=== PATIENT | female | born 1975 | race Caucasian/White ===

== ENCOUNTER 2017-07-30 20:10 | Inpatient (IN) | payer MEDICAID ==
[~2017-07-30] VITALS: Ht 149.9 cm; Wt 76.2 kg
[~2017-07-30 20:10] MED LIST: DIPH1TAB PO; DOXY100C77 PO; HYDR-569 PO; IBUP-1984 PO; IBUP-1986 PO; MECL12.5 PO; NO HOME MEDS; TRAM50TA2 PO
[2017-07-30] MEDS ORDERED: albuterol 2.5 MG/3 ML nebule CONTNEB PRN (20:25)
[2017-07-30] MEDS ORDERED: methylPREDNISolone sod succ 125mg/2ml vial IV ONE (20:25)
[2017-07-30] MEDS ORDERED: LORazepam 2 mg/ml vial IV ONE ×3 (20:40→21:35)
[2017-07-30 20:45] LABS: ABG HCO3 17.8 mmol/L (22.0-26.0); ABG OXYGEN SATURATION 98.1 % (95-98); ABG PCO2 (T) 18.5 mmHg (32.0-45.0); ABG PH (T) 7.601 (7.350-7.450); ABG PO2 (T) 101.7 mmHg (83-108); ALLEN'S TEST Positive; FCOHb 1.3 % (0.5-1.5); FMetHb 0.1 % (0.3-1.12); FO2Hb 96.7 % (94-100); PATIENT TEMPERATURE 37.1; TOTAL HEMOGLOBIN 14.5 G/dl (12.0-16.0)
[2017-07-30] MEDS ORDERED: ipratropium/albuterol 3ml nebule ONE (20:48)
[2017-07-30 21:02] LABS: PARTIAL THROMBOPLASTIN TIME 28 SECONDS (22-32); PROTHROMBIN TIME 10.2 SECONDS (9.0-12.0)
[2017-07-30 21:04] LABS: BASOPHILS # (AUTO) 0.1 X10'3 (0-0.2); BASOPHILS % (AUTO) 0.9 % (0-1); EOSINOPHILS # (AUTO) 0.2 X10'3 (0-0.9); EOSINOPHILS % (AUTO) 1.3 % (0-6); HEMATOCRIT 41.3 % (35.0-45.0); HEMOGLOBIN 14.3 g/dl (12.0-16.0); LYMPHOCYTES # (AUTO) 2.5 X10'3 (1.1-4.8); MEAN CORPUSCULAR HEMOGLOBIN 30.6 PG (27.0-31.0); MEAN CORPUSCULAR HGB CONC 34.5 % (33.0-36.5); MEAN CORPUSCULAR VOLUME 88.5 FL (78-98); MEAN PLATELET VOLUME 8.8 FL (7.4-10.4); MONOCYTES % (AUTO) 8.3 % (2-12); NEUTROPHILS # (AUTO) 7.8 X10'3 (1.8-7.7); NEUTROPHILS % (AUTO) 67.5 % (42-75); PLATELET COUNT 221 X10'3 (140-440); RED BLOOD COUNT 4.66 X10'6 (4.20-5.60); RED CELL DISTRIBUTION WIDTH 14.1 % (11.5-14.5); WHITE BLOOD COUNT 11.5 X10'3 (4.5-11.0)
[2017-07-30 21:19] LABS: ALANINE AMINOTRANSFERASE 17 U/L (12-78); ALBUMIN 3.7 G/DL (3.4-5.0); ALBUMIN/GLOBULIN RATIO 0.9 (1.1-1.5); ALKALINE PHOSPHATASE 137 IU/L (46-116); ANION GAP 15 (8-16); ASPARTATE AMINO TRANSFERASE 18 U/L (10-37); BILIRUBIN,TOTAL 0.5 MG/DL (0.1-1.0); BLOOD UREA NITROGEN 13 MG/DL (7-18); BUN/CREATININE RATIO 17.3 (6.6-38.0); CALCIUM 8.8 MG/DL (8.5-10.1); CHLORIDE 104 MMOL/L (99-107); CREATININE 0.75 MG/DL (0.40-0.90); GLUCOSE 89 MG/DL (70-104); SODIUM 140 MMOL/L (135-145); TOTAL CARBON DIOXIDE 20.8 MMOL/L (24-32); TOTAL PROTEIN 7.9 G/DL (6.4-8.2); eGFR 84 ML/MIN
[2017-07-30 21:23] LABS: POTASSIUM 2.4 MMOL/L (3.5-5.1)
[2017-07-30] MEDS ORDERED: iohexol 350MG/ML 100ml bottle IV ONE (21:28)
[2017-07-30] MEDS ORDERED: Potassium Cl inj 20 MEQ in dextrose 5%-water 990 ML IV ONE (21:35)
[2017-07-30] MEDS ORDERED: potassium Cl 20 mEq SR tablet PO STA (21:35)
[2017-07-30 21:53] LABS: D-DIMER 0.52 MG/L FEU (0-0.50)
[2017-07-30] MEDS ORDERED: acetaminophen/codeine 120mg/12mg per 5ml cup PO ONE (22:20)
[2017-07-30 23:11] LABS: URINE AMPHETAMINE SCREEN POSITIVE (Neg); URINE BARBITUATE SCREEN NEGATIVE (Neg); URINE BENZODIAZEPINES SCREEN NEGATIVE (Neg); URINE CANNABINOID SCREEN NEGATIVE (Neg); URINE COCAINE SCREEN NEGATIVE (Neg); URINE METHADONE SCREEN NEGATIVE (Neg); URINE OPIATE SCREEN NEGATIVE (Neg); URINE PHENCYCLIDINE SCREEN NEGATIVE (Neg)
[2017-07-31] MEDS ORDERED: potassium Cl 40MEQ/NS 500ml 500 ML IV PRN ×2 (00:30)
[2017-07-31] MEDS ORDERED: acetaminophen 325mg tablet PO PRN (00:30)
[2017-07-31] MEDS ORDERED: ondansetron/PF 4mg/2ml inj IV PRN (00:30)
[2017-07-31] MEDS ORDERED: potassium Cl 20 mEq SR tablet PO PRN ×2 (00:30)
[2017-07-31] MEDS ORDERED: albuterol 2.5 MG/3 ML nebule NEB PRN (00:35)
[2017-07-31] MEDS ORDERED: LORazepam 2 mg/ml vial IV PRN (00:35)
[2017-07-31 01:45] VITALS: BP 108/64
[2017-07-31] MEDS ORDERED: potassium Cl 40MEQ/NS 500ml 500 ML IV ONE (01:56)
[2017-07-31] MEDS: normal saline 1000ml 1,000 ML IV SCH ×2 (05:29→10:29)
[2017-07-31 07:17] VITALS: BP 100/57
[2017-07-31] MEDS ORDERED: heparin, porcine 5000 units/ml vial SQ SCH (08:00)
[2017-07-31] MEDS ORDERED: K and/or MAG REPLACEMENT MC SCH (08:00)
[2017-07-31 08:48] LABS: BASOPHILS % (AUTO) 0.1 % (0-1); EOSINOPHILS # (AUTO) 0.1 X10'3 (0-0.9); HEMATOCRIT 38.9 % (35.0-45.0); HEMOGLOBIN 13.3 g/dl (12.0-16.0); LYMPHOCYTES # (AUTO) 0.6 X10'3 (1.1-4.8); LYMPHOCYTES % (AUTO) 7.3 % (21-51); MEAN CORPUSCULAR HEMOGLOBIN 30.5 PG (27.0-31.0); MEAN CORPUSCULAR HGB CONC 34.2 % (33.0-36.5); MEAN CORPUSCULAR VOLUME 89.1 FL (78-98); MEAN PLATELET VOLUME 8.4 FL (7.4-10.4); MONOCYTES # (AUTO) 0.2 X10'3 (0-0.9); NEUTROPHILS # (AUTO) 7.7 X10'3 (1.8-7.7); NEUTROPHILS % (AUTO) 89.6 % (42-75); PLATELET COUNT 196 X10'3 (140-440); RED BLOOD COUNT 4.36 X10'6 (4.20-5.60); RED CELL DISTRIBUTION WIDTH 14.4 % (11.5-14.5); WHITE BLOOD COUNT 8.6 X10'3 (4.5-11.0)
[2017-07-31 09:01] LABS: ALBUMIN 2.9 G/DL (3.4-5.0); ANION GAP 11 (8-16); BLOOD UREA NITROGEN 7 MG/DL (7-18); BUN/CREATININE RATIO 12.1 (6.6-38.0); CALCIUM 8.5 MG/DL (8.5-10.1); CHLORIDE 108 MMOL/L (99-107); CREATININE 0.58 MG/DL (0.40-0.90); GLUCOSE 181 MG/DL (70-104); POTASSIUM 4.2 MMOL/L (3.5-5.1); SODIUM 139 MMOL/L (135-145); TOTAL CARBON DIOXIDE 19.8 MMOL/L (24-32); eGFR > 90 ML/MIN
[2017-07-31 09:06] LABS: ABG HCO3 19.5 mmol/L (22.0-26.0); ABG OXYGEN SATURATION 94.2 % (95-98); ABG PCO2 (T) 31.2 mmHg (32.0-45.0); ABG PH (T) 7.413 (7.350-7.450); ABG PO2 (T) 72.4 mmHg (83-108); ALLEN'S TEST Positive; FCOHb 0.1 % (0.5-1.5); FMetHb 0.2 % (0.3-1.12); FO2Hb 93.9 % (94-100)
[2017-07-31] MEDS ORDERED: iohexol 350MG/ML 100ml bottle IV ONE (09:54)
[2017-07-31] MEDS ORDERED: NO HOME MEDS (09:55)
[2017-07-31 11:30] VITALS: BP 106/65
== END 2017-07-31 13:07 | disposition home or self-care (01) | DRG 425 ==
LOC: ER 20:11 → ED HOLD 07-31 00:29 → SUR 3N 07-31 01:20
PROVIDERS: ADMIT Internal Medicine; ATTEND Internal Medicine
PROC: BW2F1ZZ Computerized Tomography (CT Scan) of Neck using Low Osmolar Contrast (ICD-10-PCS; principal; 2017-07-30)
PROC: B3201ZZ Computerized Tomography (CT Scan) of Thoracic Aorta using Low Osmolar Contrast (ICD-10-PCS; 2017-07-31)
DX: E87.3 Alkalosis (principal); F15.10 Other stimulant abuse, uncomplicated; E87.6 Hypokalemia; R22.1 Localized swelling, mass and lump, neck; F17.210 Nicotine dependence, cigarettes, uncomplicated; F41.9 Anxiety disorder, unspecified; R06.4 Hyperventilation; Z71.51 Drug abuse counseling and surveillance of drug abuser
CPT/HCPCS: 36415; 36600; 70491; 71045; 71275; 80048; 80053; 80305; 82803; 82948; 83605; 83880; 84484; 85018; 85025; 85379; 85610; 85730; 87040; 87070; 94640; 94760; J1644; J2060; J2930; J3480; J7030; J7070; Q9967

== ENCOUNTER 2017-09-06 23:04 | Emergency (ER) | payer MEDICAID ==
[~2017-09-06] VITALS: Ht 149.9 cm; Wt 77.6 kg
[2017-09-06 23:06] VITALS: BP 113/77
== END 2017-09-06 23:57 | disposition home or self-care (01) ==
LOC: ER 23:04
DX: S61.012D Laceration without foreign body of left thumb without damage to nail, subsequent encounter (principal); F15.90 Other stimulant use, unspecified, uncomplicated; Z90.49 Acquired absence of other specified parts of digestive tract; Z98.890 Other specified postprocedural states; Z56.0 Unemployment, unspecified; X58.XXXD Exposure to other specified factors, subsequent encounter
CPT/HCPCS: 99282

== ENCOUNTER 2017-09-10 04:32 | Emergency (ER) | payer MEDICAID ==
[~2017-09-10] VITALS: Ht 165.1 cm; Wt 74.5 kg
[2017-09-10] MEDS ORDERED: ondansetron/PF 4mg/2ml inj IM ONE (05:30)
[2017-09-10] MEDS ORDERED: morphine 4 MG/ML inj SYRINge IM ONE (05:30)
[2017-09-10 05:52] VITALS: BP 130/86
[2017-09-10] MEDS ORDERED: IBUP-1984 PO (05:59)
[2017-09-10] MEDS ORDERED: HYDR-569 PO (05:59)
== END 2017-09-10 06:25 | disposition home or self-care (01) ==
LOC: ER 04:33
DX: S00.83XA Contusion of other part of head, initial encounter (principal); F15.90 Other stimulant use, unspecified, uncomplicated; Z90.49 Acquired absence of other specified parts of digestive tract; Z79.899 Other long term (current) drug therapy; Z56.0 Unemployment, unspecified; Y04.8XXA Assault by other bodily force, initial encounter
CPT/HCPCS: 70450; 70486; 72125; 96372; 99284; J2270; J2405

== ENCOUNTER 2017-09-30 08:58 | Emergency (ER) | payer MEDICAID ==
[~2017-09-30] VITALS: Ht 149.9 cm; Wt 73.6 kg
[~2017-09-30 08:58] MED LIST changes: -DIPH1TAB PO; -DOXY100C77 PO; -IBUP-1986 PO; -MECL12.5 PO; -NO HOME MEDS; -TRAM50TA2 PO
[2017-09-30 09:54] LABS: BASOPHILS % (AUTO) 0.3 % (0-1); EOSINOPHILS % (AUTO) 0.2 % (0-6); HEMATOCRIT 43.3 % (35.0-45.0); HEMOGLOBIN 14.8 g/dl (12.0-16.0); LYMPHOCYTES # (AUTO) 1.2 X10'3 (1.1-4.8); LYMPHOCYTES % (AUTO) 9.8 % (21-51); MEAN CORPUSCULAR HEMOGLOBIN 30.4 PG (27.0-31.0); MEAN CORPUSCULAR HGB CONC 34.2 % (33.0-36.5); MEAN CORPUSCULAR VOLUME 88.9 FL (78-98); MEAN PLATELET VOLUME 8.6 FL (7.4-10.4); MONOCYTES # (AUTO) 0.7 X10'3 (0-0.9); MONOCYTES % (AUTO) 5.4 % (2-12); NEUTROPHILS # (AUTO) 10.7 X10'3 (1.8-7.7); NEUTROPHILS % (AUTO) 84.3 % (42-75); PLATELET COUNT 181 X10'3 (140-440); RED BLOOD COUNT 4.87 X10'6 (4.20-5.60); RED CELL DISTRIBUTION WIDTH 15.5 % (11.5-14.5); WHITE BLOOD COUNT 12.7 X10'3 (4.5-11.0)
[2017-09-30 10:09] LABS: ALANINE AMINOTRANSFERASE 25 U/L (12-78); ALBUMIN 3.4 G/DL (3.4-5.0); ALBUMIN/GLOBULIN RATIO 0.7 (1.1-1.5); ALKALINE PHOSPHATASE 116 IU/L (46-116); ANION GAP 11 (8-16); ASPARTATE AMINO TRANSFERASE 24 U/L (10-37); BILIRUBIN,TOTAL 0.4 MG/DL (0.1-1.0); BLOOD UREA NITROGEN 7 MG/DL (7-18); BUN/CREATININE RATIO 9.7 (6.6-38.0); CALCIUM 8.9 MG/DL (8.5-10.1); CHLORIDE 98 MMOL/L (99-107); CREATININE 0.72 MG/DL (0.40-0.90); GLUCOSE 100 MG/DL (70-104); SODIUM 134 MMOL/L (135-145); TOTAL CARBON DIOXIDE 25.5 MMOL/L (24-32); TOTAL PROTEIN 8.4 G/DL (6.4-8.2); eGFR 88 ML/MIN
[2017-09-30] MEDS ORDERED: potassium Cl 20 mEq SR tablet PO STA (11:27)
[2017-09-30] MEDS ORDERED: PENI-88 PO (12:24)
[2017-09-30 12:54] VITALS: BP 97/56
== END 2017-09-30 13:11 | disposition home or self-care (01) ==
LOC: ER 08:58
DX: J02.0 Streptococcal pharyngitis (principal); R22.1 Localized swelling, mass and lump, neck; F17.200 Nicotine dependence, unspecified, uncomplicated; F15.90 Other stimulant use, unspecified, uncomplicated; Z90.49 Acquired absence of other specified parts of digestive tract; Z56.0 Unemployment, unspecified; Z98.890 Other specified postprocedural states; Z79.2 Long term (current) use of antibiotics; Z79.1 Long term (current) use of non-steroidal anti-inflammatories (NSAID)
CPT/HCPCS: 36415; 70490; 80053; 85025; 87880; 99285

== ENCOUNTER 2017-10-25 10:12 | Inpatient (IN) | payer MEDICAID ==
[~2017-10-25] VITALS: Ht 149.9 cm; Wt 73.3 kg
[~2017-10-25 10:12] MED LIST changes: -IBUP-1984 PO
[2017-10-25 10:41] LABS: BASOPHILS # (AUTO) 0.1 X10'3 (0-0.2); BASOPHILS % (AUTO) 0.5 % (0-1); EOSINOPHILS % (AUTO) 0.2 % (0-6); HEMATOCRIT 44.4 % (35.0-45.0); HEMOGLOBIN 15.3 g/dl (12.0-16.0); LYMPHOCYTES # (AUTO) 1.2 X10'3 (1.1-4.8); LYMPHOCYTES % (AUTO) 8.5 % (21-51); MEAN CORPUSCULAR HEMOGLOBIN 30.9 PG (27.0-31.0); MEAN CORPUSCULAR HGB CONC 34.4 % (33.0-36.5); MEAN PLATELET VOLUME 8.5 FL (7.4-10.4); MONOCYTES # (AUTO) 0.7 X10'3 (0-0.9); NEUTROPHILS # (AUTO) 12.4 X10'3 (1.8-7.7); NEUTROPHILS % (AUTO) 85.8 % (42-75); PLATELET COUNT 206 X10'3 (140-440); RED BLOOD COUNT 4.93 X10'6 (4.20-5.60); RED CELL DISTRIBUTION WIDTH 15.8 % (11.5-14.5); WHITE BLOOD COUNT 14.4 X10'3 (4.5-11.0)
[2017-10-25 10:45] LABS: CLARITY,URINE CLOUDY (Clear); COLOR,URINE YELLOW (Yellow); GLUCOSE, URINE NEGATIVE (Neg); KETONES,URINE NEGATIVE (Neg); LEUKOCYTE ESTERASE ,URINE LARGE (Neg); NITRITES, URINE POSITIVE (Neg); OCCULT BLOOD,URINE MODERATE (Neg); PH,URINE 6.5 (4.8-8.0); PROTEIN,URINE 30 mg/dl (Neg); URINE HCG NEGATIVE (NEG); UROBILINOGEN,URINE 0.2 E.U/dL (0.2-1.0)
[2017-10-25 10:46] LABS: UA COLLECTION TYPE CLN CATCH MIDSTREAM
[2017-10-25 10:50] LABS: INR 1.1 INR; PROTHROMBIN TIME 10.9 SECONDS (9.0-12.0)
[2017-10-25 10:52] LABS: BACTERIA,URINE 4+ /HPF (Neg); WBC,URINE TNTC /HPF (0-4)
[2017-10-25 10:53] LABS: MUCUS STRANDS FEW /LPF (Neg); SQUAMOUS EPITHELIAL CELL,UR MANY /LPF (FEW)
[2017-10-25 10:55] LABS: ALANINE AMINOTRANSFERASE 14 U/L (12-78); ALBUMIN 3.5 G/DL (3.4-5.0); ALBUMIN/GLOBULIN RATIO 0.8 (1.1-1.5); ALKALINE PHOSPHATASE 123 IU/L (46-116); ANION GAP 8 (8-16); ASPARTATE AMINO TRANSFERASE 15 U/L (10-37); BILIRUBIN,TOTAL 0.9 MG/DL (0.1-1.0); CALCIUM 8.9 MG/DL (8.5-10.1); CHLORIDE 100 MMOL/L (99-107); CREATININE 0.64 MG/DL (0.40-0.90); GLUCOSE 92 MG/DL (70-104); POTASSIUM 3.2 MMOL/L (3.5-5.1); SODIUM 135 MMOL/L (135-145); TOTAL CARBON DIOXIDE 27.2 MMOL/L (24-32); TOTAL PROTEIN 8.1 G/DL (6.4-8.2); eGFR > 90 ML/MIN
[2017-10-25 11:04] LABS: BLOOD UREA NITROGEN 4 MG/DL (7-18); BUN/CREATININE RATIO 6.3 (6.6-38.0)
[2017-10-25] MEDS ORDERED: normal saline 1000ML IV soln IVB ONE (11:45)
[2017-10-25] MEDS ORDERED: ondansetron/PF 4mg/2ml inj IV ONE (11:45)
[2017-10-25] MEDS ORDERED: HYDROmorphone 1 mg/ml syringe IV ONE (11:45)
[2017-10-25 11:58] LABS: MAGNESIUM 1.9 MG/DL (1.5-2.4)
[2017-10-25 11:59] LABS: PARTIAL THROMBOPLASTIN TIME 30 SECONDS (22-32)
[2017-10-25 12:49] LABS: CLARITY,URINE SLIGHTLY CLOUDY (Clear); COLOR,URINE YELLOW (Yellow); GLUCOSE, URINE NEGATIVE (Neg); KETONES,URINE NEGATIVE (Neg); LEUKOCYTE ESTERASE ,URINE LARGE (Neg); NITRITES, URINE POSITIVE (Neg); OCCULT BLOOD,URINE SMALL (Neg); PROTEIN,URINE 30 mg/dl (Neg); UROBILINOGEN,URINE 0.2 E.U/dL (0.2-1.0)
[2017-10-25 12:54] LABS: UA COLLECTION TYPE CLN CATCH MIDSTREAM
[2017-10-25 12:56] LABS: BACTERIA,URINE 2+ /HPF (Neg); MUCUS STRANDS NONE SEEN /LPF (Neg); RBC,URINE 0-2 /HPF (0-2); SQUAMOUS EPITHELIAL CELL,UR NONE SEEN /LPF (FEW); WBC,URINE 30-50 /HPF (0-4)
[2017-10-25] MEDS ORDERED: CefTRIAXone 2gm/D5W 50ml 50 ML IV ONE (13:45)
[2017-10-25] MEDS ORDERED: LEVO500T89 PO (16:46)
[2017-10-25] MEDS ORDERED: ketorolac trometh. 30mg/ml inj. IV ONE (17:20)
[2017-10-25] MEDS ORDERED: HYDROcodone/acetaminophen 10/325mg tab PO PRN (17:35)
[2017-10-25] MEDS ORDERED: magnesium hydroxide 30ml (MOM) UD suspension PO PRN (17:35)
[2017-10-25] MEDS ORDERED: potassium Cl 40MEQ/NS 500ml 500 ML IV PRN ×2 (17:35)
[2017-10-25] MEDS ORDERED: potassium Cl 20 mEq SR tablet PO PRN (17:35)
[2017-10-25] MEDS ORDERED: ondansetron/PF 4mg/2ml inj IV PRN (17:35)
[2017-10-25] MEDS ORDERED: mag hydrox/Alum hydrox/simeth 30ml oral suspension PO PRN (17:35)
[2017-10-25] MEDS ORDERED: magnesium 1gm/100ml D5W IVPB 100 ML IV PRN (17:35)
[2017-10-25] MEDS ORDERED: magnesium Cl slow-release 64mg tablet PO PRN (17:35)
[2017-10-25] MEDS ORDERED: acetaminophen 325mg tablet PO PRN (17:35)
[2017-10-25] MEDS ORDERED: magnesium 4gm in 100ml NS 100 ML IV PRN (17:35)
[2017-10-25] MEDS ORDERED: HYDROcodone/acetaminophen 5mg/325mg tablet PO PRN (17:35)
[2017-10-25] MEDS: normal saline 1000ml 1,000 ML IV SCH ×2 (17:59→19:38)
[2017-10-25] MEDS ORDERED: NO HOME MEDS (18:00)
[2017-10-25] MEDS: nicotine 14mg patch - 24hr TD SCH (18:20)
[2017-10-25] MEDS: potassium Cl 20 mEq SR tablet PO PRN ×2 (19:39→23:58)
[2017-10-25 20:00] VITALS: BP 90/45
[2017-10-25] MEDS ORDERED: temazepam 15mg capsule PO PRN (21:00)
[2017-10-26] VITALS: BP 94/44
[2017-10-26] MEDS: normal saline 1000ml 1,000 ML IV SCH ×3 (04:17→23:20)
[2017-10-26] MEDS: potassium Cl 20 mEq SR tablet PO PRN ×4 (04:17→23:18)
[2017-10-26 06:06] LABS: ALANINE AMINOTRANSFERASE 10 U/L (12-78); ALBUMIN 2.4 G/DL (3.4-5.0); ALBUMIN/GLOBULIN RATIO 0.7 (1.1-1.5); ALKALINE PHOSPHATASE 91 IU/L (46-116); ANION GAP 9 (8-16); ASPARTATE AMINO TRANSFERASE 11 U/L (10-37); BILIRUBIN,TOTAL 0.3 MG/DL (0.1-1.0); BLOOD UREA NITROGEN 7 MG/DL (7-18); BUN/CREATININE RATIO 10.6 (6.6-38.0); CALCIUM 7.6 MG/DL (8.5-10.1); CHLORIDE 106 MMOL/L (99-107); CREATININE 0.66 MG/DL (0.40-0.90); GLUCOSE 97 MG/DL (70-104); MAGNESIUM 1.8 MG/DL (1.5-2.4); POTASSIUM 3.4 MMOL/L (3.5-5.1); SODIUM 135 MMOL/L (135-145); TOTAL CARBON DIOXIDE 20.5 MMOL/L (24-32); TOTAL PROTEIN 5.9 G/DL (6.4-8.2); eGFR > 90 ML/MIN
[2017-10-26 06:09] LABS: BASOPHILS % (AUTO) 0.2 % (0-1); EOSINOPHILS # (AUTO) 0.2 X10'3 (0-0.9); EOSINOPHILS % (AUTO) 1.1 % (0-6); HEMATOCRIT 35.2 % (35.0-45.0); HEMOGLOBIN 12.3 g/dl (12.0-16.0); LYMPHOCYTES # (AUTO) 1.4 X10'3 (1.1-4.8); LYMPHOCYTES % (AUTO) 9.1 % (21-51); MEAN CORPUSCULAR HEMOGLOBIN 31.2 PG (27.0-31.0); MEAN CORPUSCULAR HGB CONC 34.9 % (33.0-36.5); MEAN CORPUSCULAR VOLUME 89.3 FL (78-98); MEAN PLATELET VOLUME 9.8 FL (7.4-10.4); MONOCYTES # (AUTO) 0.8 X10'3 (0-0.9); MONOCYTES % (AUTO) 5.1 % (2-12); NEUTROPHILS # (AUTO) 13.3 X10'3 (1.8-7.7); NEUTROPHILS % (AUTO) 84.5 % (42-75); PLATELET COUNT 150 X10'3 (140-440); RED BLOOD COUNT 3.94 X10'6 (4.20-5.60); RED CELL DISTRIBUTION WIDTH 15.6 % (11.5-14.5); WHITE BLOOD COUNT 15.7 X10'3 (4.5-11.0)
[2017-10-26 07:00] VITALS: BP 102/55
[2017-10-26] MEDS: CefTRIAXone/D5W-Rocephin 1gm 50 ML IV SCH (07:20)
[2017-10-26] MEDS: acetaminophen 325mg tablet PO PRN ×2 (07:21→16:34)
[2017-10-26] MEDS: nicotine 14mg patch - 24hr TD SCH (07:26)
[2017-10-26] MEDS: K and/or MAG REPLACEMENT MC SCH (07:26)
[2017-10-26 19:00] VITALS: BP 92/46
[2017-10-26] MEDS: lactobacillus rhamnosus 10,000 MMU CELLS/CAPSULE PO SCH (23:18)
[2017-10-27] VITALS: BP 108/82
[2017-10-27 04:41] LABS: BASOPHILS % (AUTO) 0.4 % (0-1); EOSINOPHILS # (AUTO) 0.2 X10'3 (0-0.9); EOSINOPHILS % (AUTO) 1.7 % (0-6); HEMATOCRIT 34.8 % (35.0-45.0); HEMOGLOBIN 11.9 g/dl (12.0-16.0); LYMPHOCYTES # (AUTO) 1.5 X10'3 (1.1-4.8); LYMPHOCYTES % (AUTO) 16.6 % (21-51); MEAN CORPUSCULAR HEMOGLOBIN 30.9 PG (27.0-31.0); MEAN CORPUSCULAR VOLUME 90.7 FL (78-98); MEAN PLATELET VOLUME 9.1 FL (7.4-10.4); MONOCYTES # (AUTO) 0.7 X10'3 (0-0.9); MONOCYTES % (AUTO) 7.5 % (2-12); NEUTROPHILS # (AUTO) 6.7 X10'3 (1.8-7.7); NEUTROPHILS % (AUTO) 73.8 % (42-75); PLATELET COUNT 131 X10'3 (140-440); RED BLOOD COUNT 3.84 X10'6 (4.20-5.60); RED CELL DISTRIBUTION WIDTH 15.5 % (11.5-14.5)
[2017-10-27 04:56] LABS: ALANINE AMINOTRANSFERASE 17 U/L (12-78); ALBUMIN 2.3 G/DL (3.4-5.0); ALBUMIN/GLOBULIN RATIO 0.6 (1.1-1.5); ALKALINE PHOSPHATASE 105 IU/L (46-116); ANION GAP 6 (8-16); ASPARTATE AMINO TRANSFERASE 17 U/L (10-37); BILIRUBIN,TOTAL 0.3 MG/DL (0.1-1.0); BLOOD UREA NITROGEN 3 MG/DL (7-18); BUN/CREATININE RATIO 4.5 (6.6-38.0); CALCIUM 7.9 MG/DL (8.5-10.1); CHLORIDE 106 MMOL/L (99-107); CREATININE 0.67 MG/DL (0.40-0.90); GLUCOSE 105 MG/DL (70-104); MAGNESIUM 1.6 MG/DL (1.5-2.4); POTASSIUM 3.7 MMOL/L (3.5-5.1); SODIUM 135 MMOL/L (135-145); TOTAL CARBON DIOXIDE 22.7 MMOL/L (24-32); TOTAL PROTEIN 6.2 G/DL (6.4-8.2); eGFR > 90 ML/MIN
[2017-10-27 07:38] VITALS: BP 105/60
[2017-10-27] MEDS: nicotine 14mg patch - 24hr TD SCH (07:44)
[2017-10-27] MEDS: K and/or MAG REPLACEMENT MC SCH (07:46)
[2017-10-27] MEDS: CefTRIAXone/D5W-Rocephin 1gm 50 ML IV SCH (07:47)
[2017-10-27] MEDS: lactobacillus rhamnosus 10,000 MMU CELLS/CAPSULE PO SCH ×2 (07:47→19:56)
[2017-10-27 12:02] VITALS: BP 94/55
[2017-10-27] MEDS: normal saline 1000ml 1,000 ML IV SCH (12:22)
[2017-10-27 19:30] VITALS: BP 100/53
[2017-10-28] VITALS: BP 107/62
[2017-10-28] MEDS: normal saline 1000ml 1,000 ML IV SCH (03:02)
[2017-10-28 05:06] LABS: BASOPHILS # (AUTO) 0.1 X10'3 (0-0.2); BASOPHILS % (AUTO) 2.1 % (0-1); EOSINOPHILS # (AUTO) 0.2 X10'3 (0-0.9); EOSINOPHILS % (AUTO) 3.5 % (0-6); HEMATOCRIT 35.1 % (35.0-45.0); LYMPHOCYTES # (AUTO) 1.5 X10'3 (1.1-4.8); LYMPHOCYTES % (AUTO) 24.9 % (21-51); MEAN CORPUSCULAR HEMOGLOBIN 30.9 PG (27.0-31.0); MEAN CORPUSCULAR HGB CONC 34.2 % (33.0-36.5); MEAN CORPUSCULAR VOLUME 90.1 FL (78-98); MEAN PLATELET VOLUME 9.8 FL (7.4-10.4); MONOCYTES # (AUTO) 0.7 X10'3 (0-0.9); MONOCYTES % (AUTO) 10.8 % (2-12); NEUTROPHILS # (AUTO) 3.6 X10'3 (1.8-7.7); NEUTROPHILS % (AUTO) 58.7 % (42-75); PLATELET COUNT 150 X10'3 (140-440); RED CELL DISTRIBUTION WIDTH 15.3 % (11.5-14.5); WHITE BLOOD COUNT 6.1 X10'3 (4.5-11.0)
[2017-10-28 05:38] LABS: ALANINE AMINOTRANSFERASE 27 U/L (12-78); ALBUMIN 2.3 G/DL (3.4-5.0); ALBUMIN/GLOBULIN RATIO 0.6 (1.1-1.5); ALKALINE PHOSPHATASE 100 IU/L (46-116); ANION GAP 8 (8-16); ASPARTATE AMINO TRANSFERASE 27 U/L (10-37); BILIRUBIN,TOTAL 0.3 MG/DL (0.1-1.0); BLOOD UREA NITROGEN 4 MG/DL (7-18); BUN/CREATININE RATIO 7.1 (6.6-38.0); CALCIUM 8.1 MG/DL (8.5-10.1); CHLORIDE 108 MMOL/L (99-107); CREATININE 0.56 MG/DL (0.40-0.90); GLUCOSE 96 MG/DL (70-104); MAGNESIUM 1.8 MG/DL (1.5-2.4); POTASSIUM 3.6 MMOL/L (3.5-5.1); SODIUM 137 MMOL/L (135-145); TOTAL CARBON DIOXIDE 21.3 MMOL/L (24-32); TOTAL PROTEIN 6.4 G/DL (6.4-8.2); eGFR > 90 ML/MIN
[2017-10-28] MEDS: nicotine 14mg patch - 24hr TD SCH (06:28)
[2017-10-28] MEDS: K and/or MAG REPLACEMENT MC SCH (06:28)
[2017-10-28] MEDS: lactobacillus rhamnosus 10,000 MMU CELLS/CAPSULE PO SCH (06:49)
[2017-10-28] MEDS: CefTRIAXone/D5W-Rocephin 1gm 50 ML IV SCH (06:49)
[2017-10-28 08:46] VITALS: BP 102/48
[2017-10-28 11:36] VITALS: BP 109/66
[2017-10-28] MEDS ORDERED: LEVO500T2 PO (13:07)
[2017-10-28] MEDS ORDERED: NICO-631 TD (13:07)
== END 2017-10-28 15:00 | disposition home or self-care (01) | DRG 720 ==
LOC: ER 10:13 → ED HOLD 17:35 → SUR 3N 19:50
PROVIDERS: ADMIT Family Medicine; ATTEND Family Medicine
DX: A41.9 Sepsis, unspecified organism (principal); N10 Acute pyelonephritis; E87.6 Hypokalemia; J44.9 Chronic obstructive pulmonary disease, unspecified; M54.9 Dorsalgia, unspecified; F17.210 Nicotine dependence, cigarettes, uncomplicated; R74.0 Nonspecific elevation of levels of transaminase and lactic acid dehydrogenase [LDH]; R74.8 Abnormal levels of other serum enzymes; Z59.0 Homelessness; Z82.49 Family history of ischemic heart disease and other diseases of the circulatory system; Z90.49 Acquired absence of other specified parts of digestive tract; Z98.51 Tubal ligation status
CPT/HCPCS: 36415; 71045; 74176; 80053; 81001; 81025; 83605; 83735; 84145; 85025; 85610; 85730; 87040; 87070; 87077; 87088; 87186; 93005; 96361; 96365; 96375; 99285; A4353; J0696; J1170; J1885; J2405; J7030

== ENCOUNTER 2018-09-23 12:02 | Emergency (ER) | payer MEDICAID ==
[~2018-09-23] VITALS: Ht 149.9 cm; Wt 94.2 kg
[~2018-09-23 12:02] MED LIST changes: -HYDR-569 PO; +NO HOME MEDS
[2018-09-23 12:07] VITALS: BP 106/58
[2018-09-23] MEDS ORDERED: orphenadrine citrate 60mg/2ml inj. IM ONE (12:40)
[2018-09-23] MEDS ORDERED: ketorolac trometh inj. 60 MG/2 ML VIAL IM ONE (12:40)
[2018-09-23 12:44] LABS: CLARITY,URINE CLOUDY (Clear); COLOR,URINE YELLOW (Yellow); GLUCOSE, URINE NEGATIVE (Neg); KETONES,URINE NEGATIVE (Neg); LEUKOCYTE ESTERASE ,URINE MODERATE (Neg); NITRITES, URINE POSITIVE (Neg); OCCULT BLOOD,URINE SMALL (Neg); PROTEIN,URINE NEGATIVE (Neg); UROBILINOGEN,URINE 0.2 E.U/dL (0.2-1.0)
[2018-09-23 12:47] LABS: UA COLLECTION TYPE CLN CATCH MIDSTREAM
[2018-09-23 12:54] LABS: SQUAMOUS EPITHELIAL CELL,UR MANY /LPF (FEW); TRANSITIONAL EPI CELLS,URINE FEW /HPF
[2018-09-23 12:55] LABS: BACTERIA,URINE 4+ /HPF (Neg); MUCUS STRANDS FEW /LPF (Neg); RBC,URINE 0-2 /HPF (0-2); WBC,URINE 50-100 /HPF (0-4)
[2018-09-23] MEDS ORDERED: ORPH100T2 PO (13:00)
[2018-09-23] MEDS ORDERED: IBUP-1986 PO (13:00)
[2018-09-23] MEDS ORDERED: HYDR-4353 PO (13:00)
== END 2018-09-23 13:12 | disposition home or self-care (01) ==
LOC: ER 12:03
DX: M54.5 Low back pain (principal); F17.200 Nicotine dependence, unspecified, uncomplicated; Z90.49 Acquired absence of other specified parts of digestive tract; Z98.890 Other specified postprocedural states; Z56.0 Unemployment, unspecified; Z79.899 Other long term (current) drug therapy
CPT/HCPCS: 81001; 96372; 99284; J1885; J2360

== ENCOUNTER 2019-07-16 12:08 | Emergency (ER) | payer MEDICAID, OTHER ==
[~2019-07-16] VITALS: Ht 149.9 cm; Wt 97.8 kg
[~2019-07-16 12:08] MED LIST changes: +IBUP-1986 PO; +ORPH100T2 PO
[2019-07-16 12:17] VITALS: BP 131/66
--- NOTE | 2019-07-16 12:50 | NUR ---
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 States that she will try and come back. Will call patient back x3 when room available.
== END 2019-07-16 14:00 | disposition left against medical advice (07) ==
LOC: ER 12:09
DX: M79.604 Pain in right leg (principal); Z53.21 Procedure and treatment not carried out due to patient leaving prior to being seen by health care provider

== ENCOUNTER 2019-10-11 00:52 | Emergency (ER) | payer OTHER ==
[~2019-10-11] VITALS: Ht 149.9 cm; Wt 98.6 kg
[2019-10-11 01:04] VITALS: BP 138/80
[2019-10-11] MEDS ORDERED: SULF1TAB49 PO (01:27)
== END 2019-10-11 01:38 | disposition home or self-care (01) ==
LOC: ER 00:53
DX: L03.312 Cellulitis of back [any part except buttock and flank] (principal); Z90.49 Acquired absence of other specified parts of digestive tract; Z56.0 Unemployment, unspecified
CPT/HCPCS: 99283

== ENCOUNTER 2020-01-25 00:33 | Emergency (ER) | payer OTHER ==
[~2020-01-25] VITALS: Ht 149.9 cm; Wt 96.0 kg
[2020-01-25 00:35] VITALS: BP 125/82
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
--- NOTE | 2020-01-25 00:57 | NUR ---
[id number]
== END 2020-01-25 03:03 | disposition home or self-care (01) ==
LOC: ER 00:34
DX: S01.511A Laceration without foreign body of lip, initial encounter (principal); S00.83XA Contusion of other part of head, initial encounter; J44.9 Chronic obstructive pulmonary disease, unspecified; Z98.890 Other specified postprocedural states; Z90.49 Acquired absence of other specified parts of digestive tract; Z59.0 Homelessness; Z79.899 Other long term (current) drug therapy; Y08.89XA Assault by other specified means, initial encounter; Y93.89 Activity, other specified; Y92.89 Other specified places as the place of occurrence of the external cause; Y99.8 Other external cause status
CPT/HCPCS: 99281; 99283

== ENCOUNTER 2020-01-31 22:22 | Emergency (ER) | payer SELFPAY ==
[~2020-01-31] VITALS: Ht 149.9 cm; Wt 92.7 kg
[2020-01-31 22:38] VITALS: BP 126/79
[2020-02-01] MEDS ORDERED: SULF1TAB49 PO (00:22)
== END 2020-02-01 00:31 | disposition home or self-care (01) ==
LOC: ER 22:23
DX: L02.411 Cutaneous abscess of right axilla (principal); J45.909 Unspecified asthma, uncomplicated; Z90.49 Acquired absence of other specified parts of digestive tract; Z98.890 Other specified postprocedural states; Z56.0 Unemployment, unspecified; Z79.899 Other long term (current) drug therapy
CPT/HCPCS: 10060; 99283

== ENCOUNTER 2020-07-19 01:41 | Emergency (ER) | payer OTHER ==
[~2020-07-19] VITALS: Ht 149.9 cm; Wt 95.5 kg
[2020-07-19] MEDS ORDERED: HYDROcodone/acetaminophen 10/325mg tab PO ONE (03:05)
[2020-07-19] MEDS ORDERED: HYDR-3972 PO (03:05)
[2020-07-19 03:16] VITALS: BP 148/75
== END 2020-07-19 03:17 | disposition home or self-care (01) ==
LOC: ER 01:42
DX: S92.501A Displaced unspecified fracture of right lesser toe(s), initial encounter for closed fracture (principal); S90.31XA Contusion of right foot, initial encounter; J44.9 Chronic obstructive pulmonary disease, unspecified; Z79.899 Other long term (current) drug therapy; Z90.49 Acquired absence of other specified parts of digestive tract; Z98.890 Other specified postprocedural states; Z56.0 Unemployment, unspecified; X50.0XXA Overexertion from strenuous movement or load, initial encounter; Y93.89 Activity, other specified; Y92.89 Other specified places as the place of occurrence of the external cause; Y99.8 Other external cause status
CPT/HCPCS: 73630; 99283

== ENCOUNTER 2021-09-06 | Emergency (ER) | payer MEDICAID | END 2021-09-06 01:53 | disposition left against medical advice (07) | LOC: ER 00:01 | DX: R41.0 Disorientation, unspecified (principal); R50.9 Fever, unspecified; R05.9 Cough, unspecified; Z53.21 Procedure and treatment not carried out due to patient leaving prior to being seen by health care provider ==

== ENCOUNTER 2021-09-21 21:56 | Emergency (ER) | payer MEDICAID ==
[~2021-09-21] VITALS: Ht 149.9 cm; Wt 83.7 kg
[2021-09-21 22:06] VITALS: BP 115/73
[2021-09-21] MEDS ORDERED: dexamethasone sod phosphate 10mg/ml inj IM STA (22:58)
[2021-09-21] MEDS ORDERED: AMOX-580 PO (22:59)
[2021-09-21] MEDS ORDERED: amox tr/potassium clavulanate 875/125mg TAB PO ONE (23:00)
== END 2021-09-21 23:28 | disposition home or self-care (01) ==
LOC: ER 21:57
DX: H66.92 Otitis media, unspecified, left ear (principal); J44.9 Chronic obstructive pulmonary disease, unspecified; Z90.49 Acquired absence of other specified parts of digestive tract; Z59.00 Homelessness unspecified; Z79.899 Other long term (current) drug therapy
CPT/HCPCS: 96372; 99283; J1100

== ENCOUNTER 2021-10-02 02:51 | Emergency (ER) | payer MEDICAID ==
[~2021-10-02] VITALS: Ht 149.9 cm; Wt 81.8 kg
[2021-10-02 03:06] VITALS: BP 109/77
[2021-10-02] MEDS ORDERED: tetanus & diphtheria toxoid (Td) vaccine 0.5ml IMVAC ONE (06:25)
[2021-10-02] MEDS ORDERED: TETanus/Pertussis (Acell)/Diphther VAC/PF (Tdap-Adult) 0.5ml syringe IMVAC ONE (06:30)
== END 2021-10-02 06:55 | disposition home or self-care (01) ==
LOC: ER 02:51
DX: M79.645 Pain in left finger(s) (principal); J44.9 Chronic obstructive pulmonary disease, unspecified; F17.200 Nicotine dependence, unspecified, uncomplicated; Z90.49 Acquired absence of other specified parts of digestive tract; Z79.899 Other long term (current) drug therapy; Z56.0 Unemployment, unspecified; W19.XXXA Unspecified fall, initial encounter; Y93.89 Activity, other specified; Y92.89 Other specified places as the place of occurrence of the external cause; Y99.8 Other external cause status
CPT/HCPCS: 29130; 73130; 90471; 90715; 99283

== ENCOUNTER 2021-11-07 05:19 | Emergency (ER) | payer MEDICAID ==
[~2021-11-07] VITALS: Ht 149.9 cm; Wt 68.2 kg
[2021-11-07 06:00] VITALS: BP 126/67
[2021-11-07] MEDS ORDERED: ketorolac trometh. 30mg/ml inj. IM ONE (06:25)
== END 2021-11-07 06:48 | disposition home or self-care (01) ==
LOC: ER 05:19
DX: M25.562 Pain in left knee (principal); M25.462 Effusion, left knee; F15.10 Other stimulant abuse, uncomplicated; J44.9 Chronic obstructive pulmonary disease, unspecified; Z90.49 Acquired absence of other specified parts of digestive tract; Z56.0 Unemployment, unspecified; Z79.899 Other long term (current) drug therapy; Z79.1 Long term (current) use of non-steroidal anti-inflammatories (NSAID)
CPT/HCPCS: 73564; 96372; 99284; J1885

== ENCOUNTER 2024-07-14 03:48 | Emergency (ER) | payer MEDICAID ==
[~2024-07-14] VITALS: Ht 149.9 cm; Wt 88.3 kg
[~2024-07-14 03:48] MED LIST changes: +ATOM80CA3 PO; -IBUP-1986 PO; -NO HOME MEDS; -ORPH100T2 PO
[2024-07-14 03:50] VITALS: BP 124/71
[2024-07-14 04:30] LABS: URINE HCG NEGATIVE (NEG)
[2024-07-14 04:32] LABS: BASOPHILS # (AUTO) 0.1 X10'3 (0-0.2); BASOPHILS % (AUTO) 0.9 % (0-1); EOSINOPHILS # (AUTO) 0.3 X10'3 (0-0.9); EOSINOPHILS % (AUTO) 3.9 % (0-6); HEMATOCRIT 41.2 % (35.0-45.0); LYMPHOCYTES # (AUTO) 2.6 X10'3 (1.1-4.8); LYMPHOCYTES % (AUTO) 34.1 % (21-51); MEAN CORPUSCULAR HEMOGLOBIN 30.5 PG (27.0-31.0); MEAN CORPUSCULAR VOLUME 89.8 FL (78-98); MEAN PLATELET VOLUME 8.7 FL (7.4-10.4); MONOCYTES # (AUTO) 0.6 X10'3 (0-0.9); MONOCYTES % (AUTO) 7.6 % (2-12); NEUTROPHILS # (AUTO) 4.1 X10'3 (1.8-7.7); NEUTROPHILS % (AUTO) 53.5 % (42-75); PLATELET COUNT 262 X10'3 (140-440); RED BLOOD COUNT 4.59 X10'6 (4.20-5.60); RED CELL DISTRIBUTION WIDTH 14.8 % (11.5-14.5); WHITE BLOOD COUNT 7.8 X10'3 (4.5-11.0)
[2024-07-14 04:33] LABS: BILIRUBIN,URINE NEGATIVE (Neg); CLARITY,URINE SLIGHTLY CLOUDY (Clear); COLOR,URINE YELLOW (Yellow); GLUCOSE, URINE NEGATIVE (Neg); KETONES,URINE NEGATIVE (Neg); LEUKOCYTE ESTERASE ,URINE NEGATIVE (Neg); NITRITES, URINE POSITIVE (Neg); OCCULT BLOOD,URINE SMALL (Neg); PROTEIN,URINE NEGATIVE (Neg); UROBILINOGEN,URINE 0.2 E.U/dL (0.2-1.0)
[2024-07-14 04:38] LABS: UA COLLECTION TYPE CLN CATCH MIDSTREAM
[2024-07-14 04:41] LABS: BACTERIA,URINE 4+ /HPF (Neg); SQUAMOUS EPITHELIAL CELL,UR FEW /LPF (FEW); WBC CLUMPS,URINE FEW /HPF (NEGATIVE); WBC,URINE 50-100 /HPF (0-4)
[2024-07-14 04:44] LABS: ALANINE AMINOTRANSFERASE 25 U/L (12-78); ALBUMIN 3.4 G/DL (3.4-5.0); ALBUMIN/GLOBULIN RATIO 0.9 (1.1-1.5); ALKALINE PHOSPHATASE 126 IU/L (46-116); ANION GAP 7 (8-16); ASPARTATE AMINO TRANSFERASE 14 U/L (10-37); BILIRUBIN,TOTAL 0.3 MG/DL (0.1-1.0); BLOOD UREA NITROGEN 9 MG/DL (7-18); BUN/CREATININE RATIO 14.1 (10.0-20.0); CALCIUM 8.8 MG/DL (8.5-10.1); CHLORIDE 105 MMOL/L (99-107); CREATININE 0.64 MG/DL (0.40-0.90); GLUCOSE 93 MG/DL (70-104); LIPASE 29 U/L (16-77); POTASSIUM 3.4 MMOL/L (3.5-5.1); SODIUM 141 MMOL/L (135-145); TOTAL CARBON DIOXIDE 29.3 MMOL/L (24-32); TOTAL PROTEIN 7.2 G/DL (6.4-8.2); eCRCL 72 ML/MIN; eGFR > 90 ML/MIN
--- NOTE | 2024-07-14 05:01 | Physician Documentation ---
History of Present Illness ~ Chief Complaint: Vaginal Bleeding Stated Complaint: BLEEDING Time Seen by MD: 05:00 Primary Medical Doctor: [facility] HPI Patient presents to the emergency room with one month history of heavy menstrual cycle. She specifically started bleeding a lot tonight and was concerned because the color turned brighter. Patient states she has gone through nine p ass just this evening. No lightheadedness/syncope. She is not on blood thinners. Taking ibuprofen for cramping. Medication Reconciliation Allergies: Coded Allergies: No Known Allergies (Unverified , 10/02/21) Scheduled Atomoxetine HCl (Atomoxetine HCl), 1 CAP PO QAM, (Reported) Past Medical History Past Medical History: COPD, *GI/HEPATOBILIARY* Past Surgical History: abdominal surgery, appendectomy, colectomy, other Other Past Surgical History: Lymph Node Removal Patient History: FH: CHF (congestive heart failure) FATHER, Onset:50's - 60 MOTHER, Onset:60 years & older FH: CHF (congestive heart failure) FATHER, Onset:50's - 60 MOTHER, Onset:60 years & older PCOS CHILD, Onset:10's - 15 Seizure in daughter CHILD, Onset:25's - 30 Alcohol Use: None Drug Use: methamphetamine Lives with: Family Lives In: Home Occupation: unemployed Review of Systems ROS All review of systems negative except as per HPI Physical Exam Vital Signs: Temperature: 97.7, Source: Temporal, Heart Rate: 75, Respiratory Rate: 18, BP: 124/71, Pulse Oximetry: 97, Weight: 88.350 Physical Exam General: Patient is awake, alert, oriented x4 in no acute distress Head: Normocephalic and atraumatic. Eyes: Conjunctival normal. EOMI. PERRL. ENT: Mucous membranes moist. Neck: Supple, trachea is midline. Chest: Clear to auscultation bilaterally without rales, rhonchi, or wheezes. There is no accessory muscle use or retractions. Cardiac: RRR without murmurs, gallops, or rubs. Abd: Soft, nondistended, mild suprapubic tenderness to palpation without peritonitis Progress Results/Orders Results/Orders Orders - MAURILIO REED MD Cult Urine + [place] [address] (07/14/24 04:41) Completed Orders - MAURILIO REED MD Hcg, Ur Ql (07/14/24 03:55) Cbc/Diff (07/14/24 03:55) BMP (07/14/24 03:55) Lipase (07/14/24 03:55) CMP (07/14/24 03:55) Ua W/Microscopic, Cult If Ind (07/14/24 04:15) Vital Signs 07/14/24 03:50 Temp 97.7 Pulse 75 Resp 18 B/P (MAP) 124/71 Pulse Ox 97 Laboratory Tests Test 07/14/24 04:08 07/14/24 04:15 White Blood Count 7.8 Red Blood Count 4.59 Hemoglobin 14.0 Hematocrit 41.2 Mean Corpuscular Volume 89.8 Mean Corpuscular Hemoglobin 30.5 Mean Corpuscular Hemoglobin Concent 34.0 Red Cell Distribution Width 14.8 H Platelet Count 262 Mean Platelet Volume 8.7 Neutrophils (%) (Auto) 53.5 Lymphocytes (%) (Auto) 34.1 Monocytes (%) (Auto) 7.6 Eosinophils (%) (Auto) 3.9 Basophils (%) (Auto) 0.9 Neutrophils # (Auto) 4.1 Lymphocytes # (Auto) 2.6 Monocytes # (Auto) 0.6 Eosinophils # (Auto) 0.3 Basophils # (Auto) 0.1 CBC Comment Sodium Level 141 Potassium Level 3.4 L Chloride Level 105 Carbon Dioxide Level 29.3 Anion Gap 7 L Blood Urea Nitrogen 9 Creatinine 0.64 Estimated GFR/1.73 m2 > 90 BUN/Creatinine Ratio 14.1 Glucose Level 93 Calcium Level 8.8 Total Bilirubin 0.3 Aspartate Amino Transf (AST/SGOT) 14 Alanine Aminotransferase (ALT/SGPT) 25 Alkaline Phosphatase 126 H Total Protein 7.2 Albumin 3.4 Globulin 3.8 Albumin/Globulin Ratio 0.9 L Lipase 29 Chemistry Comments Urine Specimen Description Cln catch midstream Urine Color Yellow Urine Clarity Slightly cloudy Urine pH 6.0 Urine Specific [place] >=1.030 Urine Protein Negative Urine Glucose (UA) Negative Urine Ketones Negative Urine Occult Blood Small Urine Nitrite Positive H Urine Bilirubin Negative Urine Urobilinogen 0.2 Urine Leukocyte Esterase Negative Urine RBC 3-10 Urine WBC 50-100 H Urine WBC Clumps Few Urine Squamous Epithelial Cells Few Urine Bacteria 4+ Urine Culture Indicated Indicated Volume Urine Centrifuged 10 ml Urine HCG, Qualitative Negative Urine Comment Medical Decision Making Findings Patient presents to the emergency room with vaginal bleeding as per HPI. Differentials include but are not limited to miscarriage, menorrhagia, anemia, uterine cancer therefore labs ordered which were reassuring for no anemia. Had long discussion with patient about the absolute need to follow up with her doctor that has unusual vaginal bleeding could represent cancer. She acknowledges the need to do so. Vital signs stable. Noted urinary tract infection and we will treated accordingly. ER precautions discussed. We will begin a course of control to hopefully stabilize her uterine lining. Departure Disposition: HOME / SELF CARE / HOMELESS Impression: Primary Impression: Menorrhagia Additional Impression: UTI (urinary tract infection) Condition: Stable Discharge Instructions: Menorrhagia, Urinary Tract Infection, Adult Additional Instructions: Follow up with your doctor as soon as possible as abnormal vaginal bleeding could represent possible cancer and you may need OBGYN referral. Referrals: NO PRIMARY CARE PROVIDER (PCP) Prescriptions Norgestrel-Ethinyl Estradiol (Cryselle-28 Tablet) 0.3 Mg-30 Mcg Tablet 1 TAB PO TID, #28 TAB 1 Refill one tablet three times a day till bleeding subsides, then one tablet twice a day for three days, then one daily until all bleeding stops Prov: MAURILIO REED MD 07/14/24 Cephalexin*Monohydrate* (Keflex*) 500 Mg Capsule 1 CAP PO Q12H for 10 Days, #20 CAP Prov: MAURILIO REED MD 07/14/24 Education Educated: Patient Educated regarding: diagnosis, treatment, need for follow up Signature Scribe Signature: No scribe Attestation: The note accurately reflects work and decisions made by me.Maurilio Reed MD 07/14/24 05:23 MAURILIO REED MD July 14, 2024 05:01
[2024-07-14 05:11] VITALS: TEMP 97.7
[2024-07-14] MEDS ORDERED: CEPH-585 PO (05:22)
[2024-07-14] MEDS ORDERED: NORG1TAB14 PO (05:22)
[2024-07-14 05:28] VITALS: PULSE 66; RESP 16; O2SAT 99
== END 2024-07-14 05:32 | disposition home or self-care (01) ==
LOC: ER 03:49
DX: N92.0 Excessive and frequent menstruation with regular cycle (principal); N39.0 Urinary tract infection, site not specified; J44.9 Chronic obstructive pulmonary disease, unspecified; F15.90 Other stimulant use, unspecified, uncomplicated; Z90.49 Acquired absence of other specified parts of digestive tract; Z79.899 Other long term (current) drug therapy; Z56.0 Unemployment, unspecified
CPT/HCPCS: 36415; 80053; 81001; 81025; 83690; 85025; 87077; 87088; 87186; 99283

== ENCOUNTER 2024-10-28 13:18 | Emergency (ER) | payer MEDICAID ==
[~2024-10-28] VITALS: Ht 149.9 cm; Wt 83.0 kg
[~2024-10-28 13:18] MED LIST changes: +NORG1TAB14 PO
[2024-10-28 13:35] VITALS: BP 114/61; PULSE 88; RESP 20; O2SAT 99
--- NOTE | 2024-10-28 14:04 | RADIOLOGY REPORT ---
CHEST RADIOGRAPH Indication: sob, rib fx Technique: Frontal and lateral view of the chest was obtained Comparison: None FINDINGS: Lines and Tubes: None Lungs: Clear Pleura: No effusion. No pneumothorax. Cardiomediastinal contours: Unremarkable Bones: Unremarkable IMPRESSION: No evidence of acute disease.
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
== END 2024-10-28 17:01 | disposition home or self-care (01) ==
LOC: ER 13:18
DX: R07.81 Pleurodynia (principal); F15.90 Other stimulant use, unspecified, uncomplicated; J44.9 Chronic obstructive pulmonary disease, unspecified; Z90.49 Acquired absence of other specified parts of digestive tract; Z79.899 Other long term (current) drug therapy; Z56.0 Unemployment, unspecified; W17.4XXA Fall from dock, initial encounter; Y93.89 Activity, other specified; Y92.89 Other specified places as the place of occurrence of the external cause; Y99.8 Other external cause status
CPT/HCPCS: 71046; 99283